=== PATIENT | male | born 1995 | race Two or more races ===

== ENCOUNTER 2022-07-14 20:18 | Emergency (ER) | payer OTHER ==
[~2022-07-14] VITALS: Ht 177.8 cm; Wt 77.3 kg
[2022-07-14 21:51] VITALS: BP 108/98
== END 2022-07-15 03:29 | disposition home or self-care (01) ==
LOC: EMS 20:20
DX: T40.411A Poisoning by fentanyl or fentanyl analogs, accidental (unintentional), initial encounter (principal); F11.20 Opioid dependence, uncomplicated; Y92.89 Other specified places as the place of occurrence of the external cause
CPT/HCPCS: 99281; Z7502